=== PATIENT | male | born 1975 | race Caucasian/White ===

== ENCOUNTER 2023-05-17 09:42 | Outpatient (CLI) | payer BC ==
[~2023-05-17] VITALS: Ht 177.8 cm; Wt 113.6 kg
[~2023-05-17 09:42] MED LIST: LISI5TAB PO
[2023-05-17] MEDS ORDERED: FLUT9.9S NS (13:38)
[2023-05-17] MEDS ORDERED: LORA-404 PO (13:38)
[2023-05-17] MEDS ORDERED: ASPI-999 PO (13:38)
[2023-05-17] MEDS ORDERED: OMEG-82 PO (13:38)
== END 2023-05-17 14:12 | disposition home or self-care (01) ==
LOC: PREOP 09:42
PROVIDERS: ATTEND Otolaryngology Otolaryngology/Facial Plastic Surgery
DX: Z01.818 Encounter for other preprocedural examination (principal)

== ENCOUNTER 2023-05-25 06:56 | Day surgery (SDC) | payer BC ==
[2023-05-25] VITALS (9 sets, daily range): BP systolic 120–161; BP diastolic 54–103
[~2023-05-25 06:56] MED LIST changes: +ASPI-999 PO; +FLUT9.9S NS; +LORA-404 PO; +OMEG-82 PO
[2023-05-25] MEDS ORDERED: LACTATED RINGERS 1,000 ML IV PRN (07:15)
[2023-05-25] MEDS ORDERED: PHENYLEPHRINE 0.5% NASAL SPR (NEO-SYNEPHRINE) REG ONE ×2 (07:30→09:06)
[2023-05-25] MEDS ORDERED: COCAINE 4% TOPICAL SOLN 2 ML SYR ONE (07:30)
[2023-05-25] MEDS ORDERED: LIDOCAINE 1% w/EPI 1:100,000 20 ML VIAL ONE (07:30)
[2023-05-25 07:43] LABS: BASOPHILS # (AUTO) 0.1 10^3/uL (0.0-0.1); BASOPHILS % (AUTO) 1 % (0-10); EOSINOPHILS # (AUTO) 0.3 10^3/uL (0.0-0.3); EOSINOPHILS % (AUTO) 6 % (0-10); HEMATOCRIT 49 % (40-54); HEMOGLOBIN 16.9 g/dL (13.3-17.7); LYMPHOCYTES # (AUTO) 1.4 10^3/uL (1.0-4.0); LYMPHOCYTES % (AUTO) 28 % (12-44); MEAN CORPUSCULAR HEMOGLOBIN 32 pg (25-34); MEAN CORPUSCULAR HGB CONC 35 g/dL (32-36); MEAN CORPUSCULAR VOLUME 92 fL (80-99); MEAN PLATELET VOLUME 8.8 fL (9.0-12.2); MONOCYTES # (AUTO) 0.5 10^3/uL (0.0-1.0); MONOCYTES % (AUTO) 10 % (0-12); NEUTROPHILS # (AUTO) 2.8 10^3/uL (1.8-7.8); NEUTROPHILS % (AUTO) 55 % (42-75); PLATELET COUNT 218 10^3/uL (130-400)
[2023-05-25 08:20] LABS: CREATININE SERUM 1.13 MG/DL (0.60-1.30)
[2023-05-25] MEDS ORDERED: ROCURONIUM 50 MG/5 ML (ZEMURON) VIAL IV ONE (08:23)
[2023-05-25] MEDS ORDERED: MIDAZOLAM INJ 2 MG/2 ML VIAL ONE (08:23)
[2023-05-25] MEDS ORDERED: SEVOFLURANE (ULTANE) 15 ML INHAL SOLN ONE ×2 (08:23→09:43)
[2023-05-25] MEDS ORDERED: ONDANSETRON INJECTION 4 MG/2 ML (SDV) ONE (08:23)
[2023-05-25] MEDS ORDERED: fentaNYL INJECTION 100 MCG/2 ML VIAL ONE (08:23)
[2023-05-25] MEDS ORDERED: proPOfol 200 MG/20 ML (DIPRIVAN) VIAL IV ONE (08:23)
[2023-05-25] MEDS ORDERED: dexAMETHasone INJ 10 MG/ML 1 ML VIAL ONE (08:23)
[2023-05-25] MEDS ORDERED: LIDOCAINE PF 2% 5 ML VIAL ONE (08:23)
--- NOTE | 2023-05-25 08:37 | Progress Note-Pre Operative ---
Pre-Operative Progress Note Date of Available H&P: May 25, 2023 Date H&P Reviewed: May 25, 2023 Time H&P Reviewed: 08:30 History & Physical: H&P Reviewed, Patient Examed, No changes noted Changes from last HP NONE Pre-Operative Diagnosis: Deviated Nasal Septum, Bialt Hyper of Inf Turbs SANTOSH MORGAN MD May 25, 2023 08:37
[2023-05-25] MEDS ORDERED: NS (IVPB) 50 ML 50 ML ONE (08:38)
[2023-05-25] MEDS ORDERED: AMPICILL/SULB 1.5 GM VIAL (UNASYN) ONE (08:38)
--- NOTE | 2023-05-25 08:38 | Progress Note-Post Operative ---
Post-Operative Progess Note Surgeon (s)/Small Business Representative (s) Surgeon SANTOSH MORGAN MD Small Business Representative n/a Pre-Operative Diagnosis Deviated Nasal Septum, Bialt Hyper of Inf Turbs Post-Operative Diagnosis same Post-Op Procedure Note Date of Procedure: May 25, 2023 Name of Procedure Performed: Nasal Septoplasty, Bilat Red of INf Turbs Description & Findings Description and Findings: n/a Anesthesia Type get Estimated Blood Loss minimal Packing none. Specimen(s) collected/removed nasal septum SANTOSH MORGAN MD May 25, 2023 08:38
[2023-05-25] MEDS ORDERED: AMPICILLIN/SULBACTAM INJECTION 1.5 GM in NS (IVPB) 100 ML 100 ML IV ONE (08:45)
[2023-05-25] MEDS ORDERED: HYDROcodone/ACETAMINOPHEN 5 MG/325 MG TABLET PO PRN (08:45)
[2023-05-25] MEDS ORDERED: PROMETHAZINE INJ 25 MG/ML (PHENERGAN) AMP IVP PRN (08:45)
[2023-05-25] MEDS ORDERED: D5 1/2NS + KCL 20 MEQ/L 1000ML 1,000 ML IV SCH (08:45)
[2023-05-25] MEDS ORDERED: COCAINE 4% TOPICAL SOLN 2 ML SYR NS ONE (09:07)
[2023-05-25] MEDS ORDERED: LIDOCAINE 1% w/EPI 1:100,000 20 ML VIAL INJ ONE (09:10)
[2023-05-25] MEDS ORDERED: GLYCOPYRROLATE INJ 0.2 MG/ML 2 ML VIAL ONE (09:21)
[2023-05-25] MEDS ORDERED: NEOSTIGMINE 1 MG/1ML 10 ML VIAL ONE (09:21)
[2023-05-25] MEDS: HYDROmorphone INJECTION 2 MG/ML VIAL IV ONE ×2 (10:12→10:25)
[2023-05-25] MEDS ORDERED: ONDANSETRON INJECTION 4 MG/2 ML (SDV) IVP PRN (10:15)
[2023-05-25] MEDS ORDERED: morphine INJ 10 MG/ML 1ML (SYR OR VIAL) IVP ONE (10:15)
--- NOTE | 2023-05-25 10:39 | Anesthesia-General Post-Op ---
General Patient Condition Mental Status/LOC: Same as Preop Cardiovascular: Satisfactory Nausea/Vomiting: Absent Respiratory: Satisfactory Pain: Controlled Complications: Absent Post Op Complications Complications None Follow Up Care/Instructions Patient Instructions None needed. Anesthesia/Patient Condition Patient Condition Patient is awake in PACU and doing well, no complaints, stable vital signs, no apparent adverse anesthesia problems. No complications reported per nursing. SALTY LAFLEUR DO May 25, 2023 10:39
== END 2023-05-25 12:00 | disposition home or self-care (01) ==
LOC: SDC 06:56
PROVIDERS: ATTEND Otolaryngology Otolaryngology/Facial Plastic Surgery
DX: J34.3 Hypertrophy of nasal turbinates (principal); J34.2 Deviated nasal septum; J34.89 Other specified disorders of nose and nasal sinuses; G47.33 Obstructive sleep apnea (adult) (pediatric); F17.220 Nicotine dependence, chewing tobacco, uncomplicated; Z99.81 Dependence on supplemental oxygen; Z91.199 Patient's noncompliance with other medical treatment and regimen due to unspecified reason
CPT/HCPCS: 36415; 80048; 85025; 87081; 93005